=== PATIENT | male | born 1940 | race Hispanic/Latino ===

== ENCOUNTER 2016-12-16 09:02 | Day surgery (SDC) | payer MEDICARE ==
[~2016-12-16 09:02] MED LIST: DIPRIVAN 10 MG/ML IV ONE
[2016-12-16] MEDS ORDERED: XYLOCAINE MPF 2% ONE (10:47)
--- NOTE | 2016-12-16 10:47 | Anesthesia Consultation ---
Anesthesia Consult and Med Hx Date of service: 12/16/16 - Airway Anesthetic Teeth Evaluation: Dentures (upper) ROM Head & Neck: Adequate Mental/Hyoid Distance: Adequate Mallampati Class: Class II Intubation Access Assessment: Probably Good - Pulmonary Exam CTA: Yes - Cardiac Exam Cardiac Exam: RRR - Pre-Operative Health Status ASA Pre-Surgery Classification: ASA3 Proposed Anesthetic Plan: MAC - Pulmonary Hx Smoking: No Hx Sleep Apnea: No - Cardiovascular System Hx Hypertension: No (borderline HTN) - Central Nervous System Hx Seizures: Yes (patient is currently weaning off medications) Hx Psychiatric Problems: No - Gastrointestinal Hx Gastroesophageal Reflux Disease: Yes - Endocrine Hx Non-Insulin Dependent Diabetes: No Hx Hypothyroidism: No - Hematic Hx Anemia: No Hx Sickle Cell Disease: No - Other Systems Hx Alcohol Use: No Hx Substance Use: No Hx Cancer: No Hx Obesity: No
--- NOTE | 2016-12-16 10:47 | Anesthesia Day of Surgery ---
Anesthesia Day of Surgery - Day of Surgery Patient Examined: Yes Patient H&P Reviewed: Yes Patient is NPO: Yes
[2016-12-16] MEDS ORDERED: NACL 0.9% 1000 ML 1,000 ML IV SCH (11:00)
--- NOTE | 2016-12-16 11:19 | Short Stay Summary ---
Short Stay Documentation Date of service: 12/16/16 Narrative H&P: The patient presents for his first screening colonoscopy. - History Past Medical History: GERD, seizures Past Surgical History: No surgical history Social history: lives with family, no smoking, no alcohol abuse - Allergies and Medications Current Medications: Allergies No Known Allergies Allergy (Verified 12/16/16 10:16) Home Medications Medication Instructions Recorded Confirmed Last Taken Type Aspirin 81 mg PO DAILY 12/16/16 12/16/16 12/15/16 History Finasteride 5 mg PO DAILY 12/16/16 12/16/16 12/15/16 History [place]-3 PO DAILY 12/16/16 12/15/16 History Omeprazole 20 mg PO DAILY 12/16/16 12/16/16 12/15/16 History Simvastatin 40 mg PO DAILY 12/16/16 12/16/16 12/15/16 History Zonisamide 600 mg PO HS 12/16/16 12/16/16 12/15/16 History levETIRAcetam 500 MG/NS 0.75% 500 mg PO BID 12/16/16 12/16/16 12/15/16 History Active Medications Sodium Chloride (Nacl 0.9% 1000 Ml) 1,000 mls @ 50 mls/hr IV DIRECT TORSTEN - Physical exam General appearance: no acute distress, well-nourished Integumentary: no rash, no growths, no abnormal pigmentation HEENT: Atraumatic, PERRLA, EOMI, Mucous membr. moist/pink Lungs: Clear to auscultation, Normal air movement Breasts: deferred Heart: Regular rate, Normal S1, Normal S2, no No murmurs, no Gallops Gastrointestinal: normoactive bowel sounds, no tenderness, no distended, no masses, no guarding, no organomegaly Male Genitourinary: deferred Rectal Exam: normal exam-external/orifice, normal rectal tone, no mass Extremities: no ischemia, pulses intact, pulses symmetrical, No edema, normal temperature, normal color, Full ROM Neurological: Normal gait, Normal speech, Strength at 5/5 X4 ext, Normal tone, Sensation intact, Cranial nerves 3-12 NL - Brief post op/procedure progress note Findings: see dictated report Estimated blood loss: none Pathology: none Specimen disposition: to lab Condition: stable - Disposition Condition at discharge: Good Disposition: DISCHARGED TO HOME OR SELFCARE - Discharge Diagnoses (1) Colon cancer screening Status: Acute Short Stay Discharge Plan Activity: other (no driving for 24 hours) Weight Bearing Status: Full Weight Bearing Diet: regular Follow up with: ROMEO GUERRA MD [Primary Care Provider] - 7 Days
--- NOTE | 2016-12-16 11:21 | Operative Report ---
Operative Report Operative Report: Date of procedure: 12/16/2016 Preprocedure diagnosis: Colon cancer screening, no prior studies. Post procedure diagnosis: Mild left colon diverticulosis. Procedure: Colonoscopy to the cecum Endoscopist: Dr. Schaeffer Anesthesia: Monitored anesthesia care per anesthesia department Estimated blood loss: 0 Medications: Monitored anesthesia care. See separate report by anesthesia for details. After careful discussion of the nature and purpose of the procedure as well as details of the technique risks benefits and alternatives the patient gave consent. Please see recent history and physical from the office. The patient was placed in the left lateral decubitus position and medicated per anesthesia. A rectal exam was performed sphincter tone was normal there were no masses palpable. The [employer] 570 scope was passed transanally and advanced under continuous direct vision without difficulty to the cecum. The colon was well prepared. The cecum was normal. The ascending colon was normal and on forward and retroflexed views. The transverse colon was normal. The descending colon and sigmoid colon revealed scattered diverticula. The rectum was normal on forward and retroflexed views. The procedure was well-tolerated overall and the patient was observed in recovery. Conclusions: Mild left colon diverticulosis, otherwise normal study.. Plan: Repeat colonoscopy as needed in view of age. Signed electronically: Hayden Schaeffer M.D.
[2016-12-16 11:44] VITALS: BP 109/68
--- NOTE | 2016-12-16 13:23 | Post Anesthesia Evaluation ---
- Post Anesthesia Evaluation Patient Participated: Yes Airway Patent: Yes Stable Respiratory Function: Yes Nausea/Vomiting: No Temp > 96.8F: Yes Pain Manageable: Yes Adequeate Hydration: Yes Anesthesia Complications: No Block Receding Appropriately: Not Applicable Patient on Ventilator: No
== END 2016-12-16 09:03 | disposition home or self-care (01) ==
LOC: GIO 09:02
PROVIDERS: ATTEND Internal Medicine Gastroenterology
DX: Z12.11 Encounter for screening for malignant neoplasm of colon (principal); K57.30 Diverticulosis of large intestine without perforation or abscess without bleeding; K21.9 Gastro-esophageal reflux disease without esophagitis
CPT/HCPCS: G0121; J2704; J7030

== ENCOUNTER 2017-11-26 07:50 | Outpatient (CLI) | payer MEDICARE ==
--- NOTE | 2017-11-26 12:31 | Fluoroscopy Report ---
BARIUM SWALLOW: History: Dysphagia. The patient swallows barium without difficulty demonstrating normal coordination. The cervical and thoracic portions of the esophagus demonstrate normal contours and there is normal peristalsis. The patient was able to ingest the barium tablet without difficulty. A small sliding hiatal hernia is identified. No reflux was identified during this exam. IMPRESSION: Small sliding hiatal hernia. Unremarkable esophagus.
== END 2017-11-26 07:51 | disposition home or self-care (01) ==
LOC: FLUORO 07:50
PROVIDERS: ATTEND Internal Medicine
DX: K44.9 Diaphragmatic hernia without obstruction or gangrene (principal); R31.0 Gross hematuria; R13.10 Dysphagia, unspecified
CPT/HCPCS: 74220

== ENCOUNTER 2018-12-02 11:03 | Outpatient (CLI) | payer MEDICARE ==
--- NOTE | 2018-12-02 13:19 | Fluoroscopy Report ---
BARIUM SWALLOW History: Dysphagia, gastroesophageal reflux. Findings: 66 fluoroscopic images were captured during this exam. Deglutition appears normal. No evidence for aspiration. A small sliding hiatal hernia is identified. Just proximal to this hernia, there appears to be a focal segment of narrowing estimated at 50-60%. There is no obvious mass in this area. This may represent a ring or web. The patient was able to ingest the barium tablet. The tablet caught up momentarily at the area of narrowing but eventually passed to stomach. No reflux was witnessed during this exam. IMPRESSION: Small sliding hiatal hernia. Focal area of narrowing in the distal esophagus as outlined above.
== END 2018-12-02 11:04 | disposition home or self-care (01) ==
LOC: FLUORO 11:03
PROVIDERS: ATTEND Internal Medicine Gastroenterology
DX: K44.9 Diaphragmatic hernia without obstruction or gangrene (principal); K21.9 Gastro-esophageal reflux disease without esophagitis; K22.2 Esophageal obstruction; K22.70 Barrett's esophagus without dysplasia; E78.00 Pure hypercholesterolemia, unspecified; I10 Essential (primary) hypertension
CPT/HCPCS: 74220

== ENCOUNTER 2019-10-30 06:16 | Day surgery (SDC) | payer MEDICARE ==
[~2019-10-30 06:16] MED LIST changes: -DIPRIVAN 10 MG/ML IV ONE; +IOHEXOL 300 MG/ML 50ML IV ONE
[2019-10-30] MEDS ORDERED: LACTATED RINGERS 1,000 ML ONE (06:42)
[2019-10-30] MEDS ORDERED: BACTERIOSTATIC SODIUM CHLORIDE 0.9% 30 ML VIAL INFILTRATI ONE (06:42)
[2019-10-30] MEDS ORDERED: ceFAZolin/STERILE WATER 2 GM/20 ML SYRINGE IV NR (07:00)
[2019-10-30] MEDS ORDERED: LIDOCAINE MPF (2%) 20 MG/1 ML VIAL 5 ML ONE (07:22)
[2019-10-30] MEDS ORDERED: fentaNYL 100 MCG/2 ML INJ ONE (07:22)
[2019-10-30] MEDS ORDERED: PROPOFOL 200 MG/20 ML VIAL IV ONE (07:22)
[2019-10-30] MEDS ORDERED: LACTATED RINGERS 1,000 ML IV SCH (07:30)
--- NOTE | 2019-10-30 07:45 | Anesthesia Consultation ---
Anesthesia Consult and Med Hx Date of service: 10/30/19 - Airway Anesthetic Teeth Evaluation: Dentures ROM Head & Neck: Adequate Mental/Hyoid Distance: Adequate Mallampati Class: Class II Intubation Access Assessment: Good - Pulmonary Exam CTA: Yes - Cardiac Exam Cardiac Exam: RRR - Pre-Operative Health Status ASA Pre-Surgery Classification: ASA2 Proposed Anesthetic Plan: General - Pulmonary Hx Smoking: No Hx Sleep Apnea: No (RENETTA PRE SCREEN LOW RISK) - Cardiovascular System Hx Hypertension: No - Central Nervous System Hx Seizures: Yes (DAILY MEDS , LAST SEIZURE 04/2017) Hx Back Pain: Yes Hx Psychiatric Problems: No - Gastrointestinal Hx Gastroesophageal Reflux Disease: Yes - Endocrine Hx Non-Insulin Dependent Diabetes: No Hx Hypothyroidism: No - Hematic Hx Anemia: No Hx Sickle Cell Disease: No - Other Systems Hx Alcohol Use: No Hx Substance Use: No Hx Cancer: No Hx Obesity: No
--- NOTE | 2019-10-30 07:47 | Anesthesia Day of Surgery ---
Anesthesia Day of Surgery - Day of Surgery Patient H&P Reviewed: Yes Patient is NPO: Yes
[2019-10-30] MEDS ORDERED: dexAMETHasone 20 MG/5 ML VIAL ONE (08:15)
[2019-10-30] MEDS ORDERED: ONDANSETRON 4 MG/2 ML INJ ONE (08:15)
[2019-10-30] MEDS ORDERED: IOHEXOL 300 MG/ML 50ML IV ONE ×2 (08:23)
[2019-10-30] MEDS ORDERED: ePHEDrine SULFATE 50 MG/1 ML INJ ONE (08:30)
[2019-10-30] MEDS ORDERED: FUROSEMIDE 40 MG/4 ML INJ ONE (08:41)
--- NOTE | 2019-10-30 09:04 | Post Operative Note ---
Date of procedure: 10/30/19 Pre-op diagnosis: bladder stone martínez Post-op diagnosis: same Findings: nodule and stone Procedure: cysto cyto lithopaxy rpg tur incision Anesthesia: GETA Surgeon: ALBINO SHAH Estimated blood loss: minimal Pathology: list (nodule) Specimen disposition: to lab Condition: stable Disposition: PACU
--- NOTE | 2019-10-30 09:05 | Discharge Summary ---
Short Stay Discharge Plan Activity: other Weight Bearing Status: Full Weight Bearing Diet: low fat, low cholesterol, low salt Special Instructions: other (inc fluids ) Durable Medical Equipment Needed Upon Discharge: other (home with [place] ) Follow up with: PABLO MODI MD [Primary Care Provider] - 7 Days ALBINO SHAH MD [Staff Physician] - 7 Days
--- NOTE | 2019-10-30 09:26 | Fluoroscopy Report ---
FLUOROSCOPY RETROGRADE UROGRAPHY HISTORY: Bladder stone FINDINGS: 0.4 minutes of fluoroscopy time was provided by radiology during retrograde urography by brinda ledbetter urologist. 3 fluoroscopic images are presented. There is normal filling of the renal collecting sys tems bilaterally. No filling defect or abnormal dilatation. Bladder stone was removed per the operati ve notes. Please correlate with the procedural notes as needed. Signer Name: Jagdeep Hassan Jr, MD Signed: 10/30/2019 9:21 AM Workstation Name: [id number]
--- NOTE | 2019-10-30 09:53 | Operative Report ---
PREOPERATIVE DIAGNOSIS: Large bladder stone, severe bladder outlet obstruction, severe trabeculation. POSTOPERATIVE DIAGNOSES: Large bladder stone, severe bladder outlet obstruction, severe trabeculation. PROCEDURE: Cystoscopy, cystolithotripsy, incision of prostate. SURGEON: Dr. Singletary. ANESTHESIA: General. FINDINGS: This is a gentleman who has severe outlet obstruction with a bladder stone. He now presents for treatment. DESCRIPTION OF PROCEDURE: The patient was brought to the operating room and placed on the operating table. Following induction of anesthesia, placed in lithotomy position, prepped and draped in usual sterile fashion. A large stone was seen and using the LithoClast, we broken into multiple pieces. The resectoscope was placed and we needed that to Ellik out all the chips with a loop and with the Ellik evacuator. There was a nodule right in the center of the prostate. This was with one resection in one bite of the resectoscope removed to alleviate the outlet obstruction with small incision in the procedure well. A catheter was placed. Retrograde showed some J hooking and no persistent filling defects brought to recovery in stable condition. JOB# [id number] LUDY/STEPHANIE
[2019-10-30 11:10] VITALS: BP 115/65
== END 2019-10-30 06:17 | disposition home or self-care (01) ==
LOC: OR 06:16
PROVIDERS: ATTEND Urology
DX: N21.0 Calculus in bladder (principal); N32.89 Other specified disorders of bladder; N32.0 Bladder-neck obstruction; E78.00 Pure hypercholesterolemia, unspecified; K21.9 Gastro-esophageal reflux disease without esophagitis; Z87.442 Personal history of urinary calculi; Z79.899 Other long term (current) drug therapy; Z79.82 Long term (current) use of aspirin; Z98.49 Cataract extraction status, unspecified eye; Z96.652 Presence of left artificial knee joint; Z86.2 Personal history of diseases of the blood and blood-forming organs and certain disorders involving the immune mechanism
CPT/HCPCS: 52318; 52450; 74420; 88305; C1758; C1769; J0690; J1100; J1940; J2405; J2704; J3010; J7120; Q9967

== ENCOUNTER 2021-09-16 09:14 | Outpatient (CLI) | payer MEDICARE ==
[2021-09-16 10:41] LABS: Blood Urea Nitrogen 17 mg/dL (9-20)
--- NOTE | 2021-09-16 12:37 | Cat Scan Report ---
CT abdomen pelvis wo/w con INDICATION / CLINICAL INFORMATION: MALIGNANT NEOPLASM OF PROSTATE 100 ml omni 300. TECHNIQUE: Routine CT of the abdomen and pelvis with and without contrast performed per protocol. 100 mL Omnipaq ue 300 injected IV per protocol. All CT scans at this location are performed using CT dose reduction for ALARA by means of automated exposure control. COMPARISON: None available. FINDINGS: Abdomen and pelvis: Multiple small hypodensities are present within the liver the largest of which is located near the gallbladder fossa within the right hepatic lobe measuring 1.6 cm in diameter. This low-density lesion appears cystlike. The remaining hypodensities are too small to accurately characte rize. The spleen, pancreas adrenal glands and kidneys are unremarkable aside from several renal cyst. No free air or free fluid. Small type I hiatal hernia. Shotty nonpathologically enlarged retroperito aleisha nodes identified throughout the abdomen and pelvis. Urinary bladder is only partially fluid dist ended. The prostate does not appear enlarged. Review of bone windows demonstrates thoracolumbar degenerative changes. No evidence of metastatic dis ease appreciated. The lower lungs are clear. Moderate thoracolumbar degenerative changes. IMPRESSION: No convincing evidence of metastatic disease within the abdomen or pelvis. Signer Name: Branden Branch MD Signed: 09/16/2021 12:32 PM Workstation Name: [id number]
--- NOTE | 2021-09-16 14:39 | Nuclear Medicine Report ---
NUCLEAR MEDICINE BONE SCAN, WHOLE BODY INDICATION: MALIGNANT NEOPLASM OF PROSTATE. TECHNIQUE: 25.6 mCi of Tc-99m MDP were injected IV. Whole body images were obtained. COMPARISON: CT abdomen and pelvis with and without contrast performed the same day.. FINDINGS: Skeletal Structures: Fairly symmetric, likely degenerative uptake is present involving the shoulders , sternoclavicular joints and thoracolumbar spine. Skeletal Lesions: None. Soft Tissues: Normal. Kidneys: Normal, symmetric activity. Additional Findings: Urinary contamination in the perineum is noted.. IMPRESSION: No evidence for osseous metastasis on bone scan.. Signer Name: Jagdeep Hassan Jr, MD Signed: 09/16/2021 2:34 PM Workstation Name: [id number]
== END 2021-09-16 09:15 | disposition home or self-care (01) ==
LOC: NM 09:14
PROVIDERS: ATTEND Urology
DX: C61 Malignant neoplasm of prostate (principal); K76.89 Other specified diseases of liver; M47.815 Spondylosis without myelopathy or radiculopathy, thoracolumbar region
CPT/HCPCS: 36415; 74178; 78306; 82565; 84520; A9503; Q9967